=== PATIENT | male | born 1985 | race Caucasian/White ===

== ENCOUNTER → 2020-06-21 12:38 | Outpatient (CLI) | payer OTHER ==
[2020-04-20 09:48] VITALS: BMI 27.3
[~2020-06-21 12:38] MED LIST: BUPRENORPHIN-N1 EACH SL; CYMBALTA30 MG PO; PROTONIX40 MG PO; VISTARIL25 MG PO
--- NOTE | 2020-06-22 08:06 | EC ---
PATIENT:JEN CUELLAR DATE OF SERVICE: 06/21/20 SEX: M MEDICAL RECORD: [id number] DATE OF : [birth year] LOCATION:[facility] AGE OF PATIENT: 35 ADMISSION DATE: 06/21/20 REFERRING PHYSICIAN: INTERPRETING PHYSICIAN: LITZY MORENO MD ECHOCARDIOGRAM REPORT ECHO CHARGES 4 ECHO COMPLETE Date: 06/21/20 CLINICAL DIAGNOSIS: CAD/CARDIOMYOPATHY, ASSESS EF ECHOCARDIOGRAPHIC MEASUREMENTS (adult normal given) AC root (d.<3.7cm) 3.6 cm LV Septum d (<1.2 cm> 1.3 cm Valve Excursion 1.8 cm LV Septum (systole) 1.4 cm Left Atria (s.<4.0cm> 3.4 cm LVPW d(<1.2cm) 1.4 cm RV (d.<2.3cm) 6.1 cm LVPW (sytole) 1.8 cm LV diastole(<5.6CM) 4.1 cm MV E-F(>70mm/sec) cm LV systole 2.3 cm LVOT Diameter 2.3 cm MV exc.(>10mm) 1.4 cm Est.ejection fraction (50-75%) % DOPPLER: LVIT cm/sec A 73.0 cm/sec E 58.0 cm/sec LA cm/sec RVSP 18 mmHg LVOT 103 cm/sec AOP1/2T m/s Asc. Ao 118 cm/sec RVOT 84 cm/sec RA cm/sec PA 106 cm/sec AV Gradient Peak 5.56 mmHg AV Mean 3.06 mmHg AV Area 3.3 cm MV Gradient Peak 2.29 mmHg MV Mean 1.04 mmHg MV Area cm COMMENTS: Pecan Huller: 2 GUILHERME VALLECILLO Adding Machine Mechanic: 3 Dr. Bowers TAPE# PACS Pericardial Effusion N DATE OF SERVICE: Adequate 2D, color flow imaging, spectral Doppler, and M-Mode. FINDINGS: Mild LVH. LV internal dimensions normal. Wall motion shows decreased thickening of the anterior apex. Overall, LV function lower limits of normal reduced at 45% to 50%. Aortic valve sclerosis without stenosis by Doppler interrogation. Left atrium normal at 3.4 cm. Mitral valve shows no prolapse. Trace MR. Right-sided chambers are grossly normal. Trace TR. ECHOCARDIOGRAM REPORT [id number] JEN CUELLAR TRANSINT:[id number] Voice Confirmation ID: [id number] DOCUMENT ID: [id number] LITZY MORENO MD at 0806 CC: [id number] DICTATION DATE: 06/21/20 160 OFFAL ROLLER: 06/21/20 2301 DEP CLI 06/21/20 [place] [id number] [place] [id number]
== END | disposition home or self-care (01) ==
LOC: D.HCCECHO 12:38
PROVIDERS: ATTEND Internal Medicine Interventional Cardiology
DX: I25.10 Atherosclerotic heart disease of native coronary artery without angina pectoris (principal)